=== PATIENT | female | born 1985 | race Caucasian/White ===

== ENCOUNTER 2021-06-30 08:00 | Outpatient (CLI) | payer OTHER ==
[2021-06-30 18:24] LABS: BASOPHILS % (AUTO) 0.5 %; EOSINOPHILS # (AUTO) 0.2 10^3/uL (0.0-0.7); EOSINOPHILS % (AUTO) 2.1 %; HCT - HEMATOCRIT 40.3 % (37.0-47.0); HGB - HEMOGLOBIN 13.2 g/dL (12.0-16.0); LYMPHOCYTES # (AUTO) 1.5 10^3/uL (1.5-3.5); MEAN CORPUSCULAR HEMOGLOBIN 30.3 pg (27.0-31.0); MEAN CORPUSCULAR HGB CONC 32.8 g/dL (32.0-36.0); MEAN CORPUSCULAR VOLUME 92.4 fL (81.0-99.0); MEAN PLATELET VOLUME 10.6 fL (7.9-10.8); MONOCYTES # (AUTO) 0.6 10^3/uL (0.0-1.0); MONOCYTES % (AUTO) 7.4 %; NEUTROPHILS # (AUTO) 5.7 10^3/uL (1.5-6.6); NEUTROPHILS % (AUTO) 70.9 %; PLT - PLATELET COUNT 397 10^3/uL (130-450); RED BLOOD COUNT 4.36 10^6/uL (4.20-5.40); RED CELL DISTRIBUTION WIDTH 11.9 % (12.0-15.0)
[2021-06-30 18:42] LABS: % IRON SATURATION 21 % (20-50); ALBUMIN 4.4 g/dL (3.2-5.5); ALBUMIN/GLOBULIN RATIO 1.4 (1.0-2.2); ALKALINE PHOSPHATASE 56 IU/L (42-121); ALT ALANINE AMINOTRANSFERASE 16 IU/L (10-60); AST ASPARTATE AMINOTRANSFERASE 26 IU/L (10-42); BILIRUBIN,TOTAL 0.4 mg/dL (0.2-1.0); BUN - BLOOD UREA NITROGEN 11 mg/dL (6-20); CALCIUM 9.1 mg/dL (8.5-10.3); CARBON DIOXIDE - CO2 26 mmol/L (21-32); CHLORIDE 101 mmol/L (101-111); CHOL/HDL RATIO 2.4 (<4.4); CHOLESTEROL 172 mg/dL; CREATININE 0.7 mg/dL (0.4-1.0); GFR - MDRD 96 (>89); GLUCOSE 86 mg/dL (70-100); HDL CHOLESTEROL 72 mg/dL; IRON 83 ug/dL (28-170); LDL CHOLESTEROL,CALCULATED 83 mg/dL; LDL/HDL RATIO 1.2 (<4.4); POTASSIUM 3.6 mmol/L (3.5-5.0); SODIUM 136 mmol/L (135-145); TOTAL IRON BINDING CAPACITY 403 ug/dL (250-450); TOTAL PROTEIN 7.5 g/dL (6.7-8.2); TRANSFERRIN 288 mg/dL (192-382); TRIGLYCERIDES 83 mg/dL; VLDL CHOLESTEROL 17 mg/dL
[2021-06-30 18:45] LABS: CRP - C-REACTIVE PROTEIN < 1.0 mg/dL (0-1.0); HCG,QUALITATIVE BLOOD NEGATIVE
[2021-06-30 18:54] LABS: THYROID STIMULATING HORMONE 1.17 uIU/mL (0.34-5.60)
[2021-06-30 19:22] LABS: FOLLICLE STIMULATING HORMONE 10.84 mIU/mL; LUTEINIZING HORMONE 4.71 mIU/mL
[2021-06-30 21:01] LABS: ESTIMATED AVERAGE GLUCOSE 105 mg/dL (70-100); HEMOGLOBIN A1c% 5.3 % (4.27-6.07)
[2021-07-03 12:36] LABS: ANA SCREEN NEGATIVE (NEGATIVE)
== END 2021-06-30 23:59 | disposition home or self-care (01) ==
LOC: LAB.S 08:00
PROVIDERS: ATTEND Registered Nurse
DX: F33.2 Major depressive disorder, recurrent severe without psychotic features (principal); R68.89 Other general symptoms and signs
CPT/HCPCS: 36415; 80053; 80061; 82306; 82607; 82670; 83001; 83002; 83036; 83540; 83721; 84403; 84443; 84466; 84703; 85025; 86038; 86140

== ENCOUNTER 2022-03-03 07:10 | Outpatient (CLI) | payer OTHER ==
--- NOTE | 2022-03-03 10:43 | Ultrasound Report ---
PROCEDURE: OB First Trimester INDICATIONS: POSITIVE TEST OUTSIDE/PRIOR DATING DATA: Last menstrual period (LMP): 12/25/2021. LMP-based estimated date of delivery (CHINO): 10/01/2022. First dating scan (date and location): 03/03/2022. Estimated date of delivery (CHINO) from first dating scan: 09/26/2022. TECHNIQUE: Real-time scanning was performed of the fetus and maternal pelvic organs, with image documentation. COMPARISON: None FINDINGS: Embryo: Living intrauterine gestation Heart rate: 1 58 bpm Cervical length is 4.6 cm. Caruthers-rump length is 3.6 cm (10 weeks and 3 days). Measurement variability in dating: +/- 4 weeks by LMP, +/- 7 days by mean sac diameter (use before 6 weeks gestation if crown-rump length not able to be measured), +/- 5 days by crown-rump length (6-12 weeks gestation). Maternal organs: Ovaries within normal limits, with corpus luteum in the left ovary. Small fundal fibroid measuring up to 1.4 cm. IMPRESSION: Intrauterine at 10 weeks and 3 days by crown-rump length. Reviewed by: Fili Velázquez MD on 03/03/2022 10:41 AM PDT Approved by: Fili Velázquez MD on 03/03/2022 10:41 AM PDT Station ID: [id number]
== END 2022-03-03 07:11 | disposition home or self-care (01) ==
LOC: DI 07:10
PROVIDERS: ATTEND Obstetrics & Gynecology
DX: Z32.01 Encounter for pregnancy test, result positive (principal)

== ENCOUNTER 2022-03-10 08:00 | Outpatient (CLI) | payer OTHER ==
[2022-03-10 15:35] LABS: BILIRUBIN,URINE NEGATIVE (NEGATIVE); GLUCOSE, URINE (UA) NEGATIVE (NEGATIVE); KETONES,URINE (UA) NEGATIVE (NEGATIVE); LEUKOCYTE ESTERASE, URINE NEGATIVE (NEGATIVE); NITRITE,URINE NEGATIVE (NEGATIVE); OCCULT BLOOD,URINE NEGATIVE (NEGATIVE); PH,URINE 6.5 PH (5.0-7.5); PROTEIN,URINE NEGATIVE (NEGATIVE); UROBILINOGEN,URINE 0.2 (NORMAL) E.U./dL (NORMAL)
[2022-03-10 15:55] LABS: CLARITY,URINE CLEAR (CLEAR)
[2022-03-10 15:56] LABS: BACTERIA,URINE Many /HPF (None Seen); RBC,URINE None Seen /HPF (0-5); SQUAMOUS EPITHELIAL CELL,UR FEW Squamous (<= Few); WBC,URINE 0-3 /HPF (0-5)
== END 2022-03-10 23:59 | disposition home or self-care (01) ==
LOC: LAB 08:00
PROVIDERS: ATTEND Obstetrics & Gynecology
DX: Z34.90 Encounter for supervision of normal pregnancy, unspecified, unspecified trimester (principal); Z36.89 Encounter for other specified antenatal screening
CPT/HCPCS: 81001; 87086

== ENCOUNTER 2022-03-13 16:06 | Outpatient (CLI) | payer OTHER ==
[2022-03-13 16:43] LABS: BASOPHILS % (AUTO) 0.4 %; EOSINOPHILS # (AUTO) 0.1 10^3/uL (0.0-0.7); EOSINOPHILS % (AUTO) 1.1 %; HCT - HEMATOCRIT 37.9 % (37.0-47.0); HGB - HEMOGLOBIN 12.6 g/dL (12.0-16.0); LYMPHOCYTES # (AUTO) 1.9 10^3/uL (1.5-3.5); LYMPHOCYTES % (AUTO) 26.3 %; MEAN CORPUSCULAR HEMOGLOBIN 29.9 pg (27.0-31.0); MEAN CORPUSCULAR HGB CONC 33.2 g/dL (32.0-36.0); MEAN CORPUSCULAR VOLUME 89.8 fL (81.0-99.0); MEAN PLATELET VOLUME 9.6 fL (7.9-10.8); MONOCYTES # (AUTO) 0.7 10^3/uL (0.0-1.0); MONOCYTES % (AUTO) 9.3 %; NEUTROPHILS # (AUTO) 4.5 10^3/uL (1.5-6.6); NEUTROPHILS % (AUTO) 62.6 %; PLT - PLATELET COUNT 347 10^3/uL (130-450); RED BLOOD COUNT 4.22 10^6/uL (4.20-5.40); RED CELL DISTRIBUTION WIDTH 11.8 % (12.0-15.0); WHITE BLOOD COUNT 7.2 x10^3/uL (4.8-10.8)
[2022-03-13 16:44] LABS: BILIRUBIN,URINE NEGATIVE (NEGATIVE); GLUCOSE, URINE (UA) NEGATIVE (NEGATIVE); KETONES,URINE (UA) NEGATIVE (NEGATIVE); LEUKOCYTE ESTERASE, URINE NEGATIVE (NEGATIVE); NITRITE,URINE NEGATIVE (NEGATIVE); OCCULT BLOOD,URINE NEGATIVE (NEGATIVE); PH,URINE 6.5 PH (5.0-7.5); PROTEIN,URINE NEGATIVE (NEGATIVE); UROBILINOGEN,URINE 0.2 (NORMAL) E.U./dL (NORMAL)
[2022-03-13 16:46] LABS: CLARITY,URINE CLEAR (CLEAR)
[2022-03-13 17:06] LABS: BACTERIA,URINE Few /HPF (None Seen); RBC,URINE None Seen /HPF (0-5); SQUAMOUS EPITHELIAL CELL,UR RARE Squamous (<= Few); WBC,URINE 0-3 /HPF (0-5)
[2022-03-14 08:10] LABS: HBsAG SCREEN Negative (Negative); RPR Non Reactive (Non Reactive)
[2022-03-15 00:10] LABS: HIV SCREEN 4TH GENERATION Non Reactive (Non Reactive)
[2022-03-15 10:09] LABS: VARICELLA-ZOSTER AB IGG 1660 index (Immune >165)
[2022-03-15 18:07] LABS: HCV RNA QUANTITATION HCV Not Detected IU/mL (.)
== END 2022-03-13 16:07 | disposition home or self-care (01) ==
LOC: LAB 16:06
PROVIDERS: ATTEND Obstetrics & Gynecology
DX: O09.511 Supervision of elderly primigravida, first trimester (principal); Z36.89 Encounter for other specified antenatal screening
CPT/HCPCS: 36415; 81001; 81599; 85025; 86592; 86762; 86777; 86778; 86787; 86850; 86900; 86901; 87086; 87340; 87389; 87522

== ENCOUNTER 2022-05-05 11:43 | Outpatient (CLI) | payer OTHER | END 2022-05-05 11:44 | disposition home or self-care (01) | LOC: LAB 11:43 | PROVIDERS: ATTEND Obstetrics & Gynecology | DX: O09.511 Supervision of elderly primigravida, first trimester (principal) | CPT/HCPCS: 36415; 81511 ==

== ENCOUNTER 2022-05-20 15:45 | Outpatient (CLI) | payer OTHER ==
--- NOTE | 2022-05-21 12:07 | Ultrasound Report ---
PROCEDURE: OB Detailed Eval INDICATIONS: SUPERVISION OF OUTSIDE/PRIOR DATING DATA: Last menstrual period (LMP): 12/25/2021. LMP-based estimated date of delivery (CHINO): 10/01/2022. First dating scan (date and location): 03/03/2022. Estimated date of delivery (CHINO) from first dating scan: 09/26/2022. The below data below was generated using the working CHINO of 09/26/2022 TECHNIQUE: Real-time scanning was performed of the fetus, with image documentation and biometric measurements. Endovaginal scanning: Not indicated COMPARISON: 03/03/2022. FINDINGS: General: A single living intrauterine gestation is present. Presentation: Breech Placenta: Placental position is posterior, without previa. Amniotic fluid index: 15.8 cm, normal for gestational age. heart rate: 152 beats per minute. Maternal cervical canal: 3.8 cm long; normal length is 2.5 cm or more. biometrics: Biparietal diameter: 4.76 cm, 20 weeks, 3 days. Head circumference: 18.45 cm, 20 weeks, 6 days. Abdominal circumference: 16.72 cm, 21 weeks, 5 days. Femur length: 3.7 cm, 21 weeks, 6 days. Estimated gestational age from initial scan: 21 weeks, 4 days. Composite gestational age from present scan: 21 weeks, 1 day. Estimated weight and percentile: 438.9 g, 47.4% Measurement variability in biometric dating: +/- 10 days from 12-20 weeks gestation, +/- 2 weeks from 20-30 weeks gestation, +/- 3 weeks at 30 weeks gestation or later. Anatomic survey: Neuro: Ventricles are normal at less than 10 mm. Cisterna magna is normal at 3-11 mm. Cerebellum i s normal in size and morphology. Nuchal skin fold: Normal at less than 6 mm between 14 and 20 weeks gestational age. Face: Nose and lips, facial profile are normal. Spine: No evidence for spina bifida. Heart: 4-chambered heart is present, with normal ventricular outflow tracts. Diaphragm: Diaphragm is intact. Stomach: Left-sided stomach is present. Kidneys: No hydronephrosis. Normal is less than 5 mm in 2nd trimester, less than 7 mm in 3rd trimester. Cord: 3 vessel cord has orthotopic insertion. Bladder: Normal in size. Extremities: All 4 extremities are visualized. IMPRESSION: 1. Single live intrauterine gestation with fetus in breech presentation. heart rate is 152 bpm. Normal amount of amniotic fluid. Normal growth. Estimated weight is at 47.4%. 2. Normal anatomic survey. Reviewed by: Clint Dasilva MD on 05/21/2022 12:05 PM PST Approved by: Clint Dasilva MD on 05/21/2022 12:05 PM PST Station ID: [id number]
== END 2022-05-20 15:46 | disposition home or self-care (01) ==
LOC: DI 15:45
PROVIDERS: ATTEND Nurse Practitioner
DX: O09.522 Supervision of elderly multigravida, second trimester (principal); Z36.89 Encounter for other specified antenatal screening; Z3A.21 21 weeks gestation of pregnancy

== ENCOUNTER 2022-06-30 07:55 | Outpatient (CLI) | payer OTHER ==
[2022-06-30 09:09] LABS: HCT - HEMATOCRIT 35.3 % (37.0-47.0); HGB - HEMOGLOBIN 11.4 g/dL (12.0-16.0); MEAN CORPUSCULAR HEMOGLOBIN 30.3 pg (27.0-31.0); MEAN CORPUSCULAR HGB CONC 32.3 g/dL (32.0-36.0); MEAN CORPUSCULAR VOLUME 93.9 fL (81.0-99.0); MEAN PLATELET VOLUME 9.7 fL (7.9-10.8); RED BLOOD COUNT 3.76 10^6/uL (4.20-5.40); RED CELL DISTRIBUTION WIDTH 12.9 % (12.0-15.0); WHITE BLOOD COUNT 10.6 x10^3/uL (4.8-10.8)
== END 2022-06-30 07:56 | disposition home or self-care (01) ==
LOC: LAB 07:55
PROVIDERS: ATTEND Obstetrics & Gynecology
DX: O09.511 Supervision of elderly primigravida, first trimester (principal)
CPT/HCPCS: 36415; 82950; 85027; 86850

== ENCOUNTER 2022-08-11 14:09 | Outpatient (CLI) | payer OTHER ==
[2022-08-11 15:46] LABS: BASOPHILS % (AUTO) 0.4 %; EOSINOPHILS # (AUTO) 0.1 10^3/uL (0.0-0.7); HCT - HEMATOCRIT 37.2 % (37.0-47.0); LYMPHOCYTES # (AUTO) 1.6 10^3/uL (1.5-3.5); LYMPHOCYTES % (AUTO) 15.3 %; MEAN CORPUSCULAR HEMOGLOBIN 30.1 pg (27.0-31.0); MEAN CORPUSCULAR HGB CONC 32.3 g/dL (32.0-36.0); MEAN CORPUSCULAR VOLUME 93.2 fL (81.0-99.0); MEAN PLATELET VOLUME 10.1 fL (7.9-10.8); MONOCYTES # (AUTO) 1.1 10^3/uL (0.0-1.0); MONOCYTES % (AUTO) 10.8 %; NEUTROPHILS # (AUTO) 7.3 10^3/uL (1.5-6.6); NEUTROPHILS % (AUTO) 70.6 %; PLT - PLATELET COUNT 257 10^3/uL (130-450); RED BLOOD COUNT 3.99 10^6/uL (4.20-5.40); RED CELL DISTRIBUTION WIDTH 12.7 % (12.0-15.0); WHITE BLOOD COUNT 10.3 x10^3/uL (4.8-10.8)
[2022-08-11 15:54] LABS: CREATININE,URINE 22.8 mg/dL; TOTAL PROTEIN,URINE TIMED < 6 mg/dL
[2022-08-11 16:04] LABS: RUPTURE OF MEMBRANES PLUS NEGATIVE (NEGATIVE)
[2022-08-11 16:14] LABS: ALBUMIN 2.9 g/dL (3.2-5.5); ALBUMIN/GLOBULIN RATIO 0.8 (1.0-2.2); ALKALINE PHOSPHATASE 73 IU/L (42-121); ALT ALANINE AMINOTRANSFERASE 50 IU/L (10-60); AST ASPARTATE AMINOTRANSFERASE 36 IU/L (10-42); BILIRUBIN,TOTAL < 0.2 mg/dL (0.2-1.0); BUN - BLOOD UREA NITROGEN 8 mg/dL (6-20); CALCIUM 9.1 mg/dL (8.5-10.3); CARBON DIOXIDE - CO2 25 mmol/L (21-32); CHLORIDE 107 mmol/L (101-111); CREATININE 0.5 mg/dL (0.4-1.0); GFR - MDRD 140 (>89); GLUCOSE 80 mg/dL (70-100); SODIUM 138 mmol/L (135-145); TOTAL PROTEIN 6.7 g/dL (6.7-8.2)
--- NOTE | 2022-08-11 17:02 | PROVIDER PROGRESS NOTE ---
- HPI Chief Complaint: Hypertension/PIH Current : Vital Signs Temperature 98.6 F 08/11/22 14:29 Heart Rate 95 08/11/22 14:29 Respiratory Rate 18 08/11/22 14:29 Blood Pressure 141/90 H 08/11/22 14:29 Temperature 98.1 F 08/11/22 16:17 Heart Rate 79 08/11/22 15:00 Respiratory Rate 18 08/11/22 14:29 Blood Pressure 132/81 H 08/11/22 15:01 O2 Saturation If not protocol: Oxygen Flow, liters/minute - Procedures OB Procedure Performed: NST Diagnosis/Indication for NST: Gestational Hypertension NST Procedure: EFM: 150s, moderate variability, positive 15x15 accelerations, no decelerations [place]: no contractions NST reactive/Cat 1 tracing Performed and read 08/11/22 Service Date of procedure: 08/11/22 - Plan Plan: 36yo at 32.5w sent from office visit after BP elevated 142/94. Also complaining of fatigue, previously seeing spots and itchy feet last night. She has been taking aspirin 81mg. Labs obtained. BP 141/90, then decreased to 120/80s. GEN: NAD CV: Regular rate Resp: Breathing unlabored Abd: soft, nt Ext: +1 edema NST reactive Labs reviewed and benign 36yo at 32.5w with gestational hypertension - Preeclampsia labs reviewed and benign. Follow up bile acids - Discharge to home with labor and preeclampsia precautions - Follow up 1w - Growth US ordered, to be scheduled by radiology
[2022-08-11 17:05] VITALS: BP 122/75
== END 2022-08-11 16:40 | disposition home or self-care (01) ==
LOC: WFO 14:09 → FBP 15:45 → WFO 16:40
PROVIDERS: ATTEND Obstetrics & Gynecology
DX: O13.3 Gestational [pregnancy-induced] hypertension without significant proteinuria, third trimester (principal); Z3A.32 32 weeks gestation of pregnancy
CPT/HCPCS: 36415; 59025; 80053; 82239; 82570; 84112; 84156; 84550; 85025; 99215

== ENCOUNTER 2022-09-03 21:21 | Outpatient (CLI) | payer OTHER ==
--- NOTE | 2022-09-05 07:07 | Ultrasound Report ---
PROCEDURE: OB F/U or Repeat INDICATIONS: GESTATIONAL HYPERTENSION OUTSIDE/PRIOR DATING DATA: Last menstrual period (LMP): 12/25/2021. LMP-based estimated date of delivery (CHINO): 10/01/2022. First dating scan (date and location): 03/03/2022. Estimated date of delivery (CHINO) from first dating scan: 09/26/2022. The below data below was generated using the ultrasound CHINO of 09/26/2022 TECHNIQUE: Real-time scanning was performed of the fetus, with image documentation and biometric measurements. COMPARISON: OB ultrasound 05/21/2022 FINDINGS: General: A single living intrauterine gestation is present. Presentation: Vertex Placenta: Placental position is posterior, without previa. Amniotic fluid index: 11.7 cm, within normal limits for gestational age. Largest pocket 2.9 cm heart rate: 138 beats per minute. Maternal cervical canal: 4.0 cm long; normal length is 2.5 cm or more. biometrics: Biparietal diameter: 8.8 cm 35 weeks 5 days Head circumference: 32.2 cm 36 weeks 3 days Abdominal circumference: 31.7 cm 35 weeks 5 days Femur length: 7.0 cm 35 weeks 5 days Estimated gestational age from initial scan: 36 weeks 5 days Composite gestational age from present scan: 35 weeks 6 days Estimated weight and percentile: 27 61 g, 29th percentile. This is compared to 47th percentile on prior exam Measurement variability in biometric dating: +/- 10 days from 12-20 weeks gestation, +/- 2 weeks from 20-30 weeks gestation, +/- 3 weeks at 30 weeks gestation or more. Other: There is a increased prominence of the left renal collecting system ranging from 7.0 to 8.9 mm . IMPRESSION: Single live intrauterine with ultrasound gestational age today of 35 weeks 6 days. weight is noted at the 29th percentile compared to 47th percentile on prior exam. Recommend con tinued interval imaging follow-up to document appropriate interval growth. Prominence of the left renal collecting system is obtained. Short interval imaging follow-up is also recommended. Reviewed by: Archana Chavez MD on 09/04/2022 12:55 PM PDT Approved by: Archana Chavez MD on 09/04/2022 12:55 PM PDT Station ID: [id number]
== END 2022-09-03 21:22 | disposition home or self-care (01) ==
LOC: DI 21:21
PROVIDERS: ATTEND Obstetrics & Gynecology
DX: O13.3 Gestational [pregnancy-induced] hypertension without significant proteinuria, third trimester (principal); Z3A.35 35 weeks gestation of pregnancy

== ENCOUNTER 2022-09-08 08:00 | Outpatient (CLI) | payer OTHER | END 2022-09-08 23:59 | disposition home or self-care (01) | LOC: LAB 08:00 | PROVIDERS: ATTEND Obstetrics & Gynecology | DX: Z36.85 Encounter for antenatal screening for Streptococcus B (principal) | CPT/HCPCS: 87797 ==

== ENCOUNTER 2022-09-19 09:08 | Outpatient (CLI) | payer OTHER ==
[2022-09-19 09:35] VITALS: BP 123/82
--- NOTE | 2022-09-19 10:27 | PROVIDER PROGRESS NOTE ---
- HPI Chief Complaint: Decreased movement Current : Vital Signs Temperature 98.2 F 09/19/22 09:32 Heart Rate 92 09/19/22 09:32 Respiratory Rate 18 09/19/22 09:32 Blood Pressure 123/82 H 09/19/22 09:32 Temperature 98.2 F 09/19/22 09:32 Heart Rate 92 09/19/22 09:32 Respiratory Rate 18 09/19/22 09:32 Blood Pressure 123/82 H 09/19/22 09:32 O2 Saturation If not protocol: Oxygen Flow, liters/minute - Procedures OB Procedure Performed: NST Diagnosis/Indication for NST: Decreased movement NST Procedure: NST Procedure Start Date 09/19/22 Start Time 09:16 Stop Time 10:11 Vibroacoustic Stimulation Used No Patient States Movement Yes Service Date of procedure: 09/19/21 (Read 09/19/21) - Plan Plan: Patient is a 36-year-old G1, P0 at 38 weeks gestation presenting to triage for decreased movement. She says baby has been moving less overall, but tends to have hiccups daily which reassures her. She denies leaking and bleeding. No contractions. She denies headache, right upper quadrant pain, changes in vision. Physical Exam Constitutional: alert, no acute distress, well hydrated, well developed, well nourished, appropriate dress. Cardiovascular: Regular rate and rhythm. Respiratory: no respiratory distress. Abdomen: nondistended, nontender, no guarding. Psych: affect and mood appropriate, normal interaction, good eye contact. NST: FHT: 135 bpm baseline, moderate variability, accelerations present, no decelerations. Reactive NST [place]: Quiescent Bedside ultrasound: PIETER 8.4 cm Assessment and plan 36-year-old G1, P0 at 38 weeks gestation with decreased movements 1. Decreased movement: -Patient has felt baby move since being here. Reactive NST. Modified BPP is good. -Patient does have some anxiety about the decreased movement. We discussed induction being an option if this became taxing on her, but if she does well with good movement, we can continue expectantly. -Discussed kick counts and movement expectations with patient. 2. 38 weeks gestation: -Has a follow-up appointment on Thursday. Will discuss possible induction at that time.
== END 2022-09-19 10:33 | disposition home or self-care (01) ==
LOC: WFO 09:08 → FBP 09:11 → WFO 10:33
PROVIDERS: ATTEND Obstetrics & Gynecology
DX: O36.8130 Decreased fetal movements, third trimester, not applicable or unspecified (principal); Z3A.38 38 weeks gestation of pregnancy
CPT/HCPCS: 59025; 99213; 99215

== ENCOUNTER 2022-09-26 12:17 | Inpatient (IN) | payer OTHER ==
[2022-09-26 13:02] LABS: RUPTURE OF MEMBRANES PLUS POSITIVE (NEGATIVE)
--- NOTE | 2022-09-26 13:40 | HISTORY & PHYSICAL EXAMINATION ---
Admit History - Visit Reason Visit Reason: Membranes rupture (leaking fluid since 09/25 at 5:30 pm) - : 1 Parity: 0 Care: positive: [facility] Complications This : positive: None - Mother's Labs Mother's Blood Type: positive: O Mother's RH: positive: Positive GBS: positive: Group B Step Negative Rubella Status: positive: Immune Review of Systems - Cardiovascular Cariovascular: denies: Chest pain - Respiratory Respiratory: denies: Cough - Gastrointestinal Gastrointestinal: denies: Abdominal pain - All Other Systems All Other Systems: reports: Reviewed and negative Physical - Abdominal Exam Vital Signs: Temp Pulse Resp BP Pulse Ox O2 Flow Rate 97.9 F 09/26/22 12:35 Contraction Intensity: positive: Mild Uterine Resting Tone: positive: Soft - Monitoring Strip Review: positive: Category I - Presentation Presentation: positive: Vertex - Vaginal Exam Membranes: positive: Membranes ruptured (ROM+ positive) Plan for Labor - Plan For Labor Plan for Labor: 1. admit to labor and delivery 2. ROM -discussed augmentation with pitocin 3. patient had one elevated BP on prenatals, rest have been normal 3. discussed labor management options and pain management options, all questions answered 4. GBS negative 5. wellbeing: reassuring
[2022-09-26] MEDS ORDERED: miSOPROStoL 200 MCG TABLET PR PRN (13:48)
[2022-09-26] MEDS ORDERED: OXYTOCIN/SODIUM CHLORIDE 500 ML IV PRN (13:48)
[2022-09-26] MEDS ORDERED: SODIUM CHLORIDE FLUSH 0.9% 10 ML SYRINGE IVP PRN (13:48)
[2022-09-26] MEDS ORDERED: NIFEdipine 10 MG CAPSULE PO PRN (13:48)
[2022-09-26] MEDS ORDERED: lidocaine 1% 20 ML MDV ID PRN (13:48)
[2022-09-26] MEDS ORDERED: TERBUTALINE 1 MG/ML VIAL SUBQ PRN (13:48)
[2022-09-26] MEDS ORDERED: miSOPROStoL 200 MCG TABLET BC PRN (13:48)
[2022-09-26] MEDS ORDERED: METHYLERGONOVINE 0.2 MG/ML VIAL IM PRN (13:48)
[2022-09-26] MEDS ORDERED: fentaNYL 100 MCG/2 ML VIAL IVP PRN (13:48)
[2022-09-26] MEDS ORDERED: LACTATED RINGERS 500 ML IV ONE (13:48)
[2022-09-26] MEDS ORDERED: OXYTOCIN 10 UNIT/ML VIAL IM PRN (13:48)
[2022-09-26] MEDS ORDERED: LABETALOL 20 MG/4 ML SYRINGE IVP PRN ×3 (13:48)
[2022-09-26] MEDS ORDERED: CARBOPROST TROMETHAMINE 250 MCG/ML AMP IM PRN (13:48)
[2022-09-26] MEDS ORDERED: hydrALAZINE INJ 20 MG/ML VIAL IVP PRN ×2 (13:48)
[2022-09-26] MEDS ORDERED: TRANEXAMIC ACID IN NACL 1,000 MG/100 ML BAG IV PRN (13:48)
[2022-09-26 15:37] LABS: BASOPHILS % (AUTO) 0.2 %; EOSINOPHILS # (AUTO) 0.1 10^3/uL (0.0-0.7); EOSINOPHILS % (AUTO) 0.5 %; HCT - HEMATOCRIT 37.1 % (37.0-47.0); HGB - HEMOGLOBIN 12.4 g/dL (12.0-16.0); LYMPHOCYTES # (AUTO) 1.4 10^3/uL (1.5-3.5); LYMPHOCYTES % (AUTO) 13.1 %; MEAN CORPUSCULAR HEMOGLOBIN 30.5 pg (27.0-31.0); MEAN CORPUSCULAR HGB CONC 33.4 g/dL (32.0-36.0); MEAN CORPUSCULAR VOLUME 91.4 fL (81.0-99.0); MONOCYTES # (AUTO) 0.9 10^3/uL (0.0-1.0); MONOCYTES % (AUTO) 8.7 %; NEUTROPHILS % (AUTO) 76.4 %; PLT - PLATELET COUNT 270 10^3/uL (130-450); RED BLOOD COUNT 4.06 10^6/uL (4.20-5.40); WHITE BLOOD COUNT 10.5 x10^3/uL (4.8-10.8)
[2022-09-26] MEDS: LACTATED RINGERS 1,000 ML IV SCH (15:58)
[2022-09-26] MEDS: OXYTOCIN/SODIUM CHLORIDE 500 ML IV SCH (16:02)
--- NOTE | 2022-09-26 17:31 | PROVIDER PROGRESS NOTE ---
Labor Progress Note - Uterine Monitoring Uterine Monitoring Mode: positive: External toco Contraction Intensity: positive: Mild to moderate Uterine Resting Tone: positive: Soft - Monitoring Monitor Mode: positive: External ultrasound Heart Rate Variability: positive: Moderate (6-25 bmp) Accelerations: positive: Present, 15x15 Decelerations: positive: None Strip Review: positive: Category I - Vaginal Exam Dilation (in cm): 1 Effacement (%): 20 Station: -2 - Labor Progress Note Labor Progress Note/Additional Text: Pitocin at 6 wellbeing is reassuring
[2022-09-26] MEDS ORDERED: ROPIVACAINE 0.2% 200 MG/100 ML BAG EP ONE (22:10)
[2022-09-26] MEDS ORDERED: LIDOCAINE MPF 2%-EPI 1:200000 20 ML VIAL ONE (22:10)
--- NOTE | 2022-09-26 22:53 | ANESTHESIA ---
Pre-Anesthesia VS, & Labs - Diagnosis active labor - Procedure labor epidural Vital Signs: Temp Pulse Resp BP Pulse Ox O2 Flow Rate 36.8 C 86 18 138/82 H 99 09/26/22 19:57 09/26/22 19:57 09/26/22 19:57 09/26/22 19:57 09/26/22 19:57 Height: 5 ft 3 in Weight (kg): 81.647 kg Body Mass Index: 31.8 BMI Classification: Obese - NPO Other (not NPO) - Is Patient ?: Yes - Lab Results Current Lab Results: Laboratory Tests 09/26/22 15:20: WBC 10.5, RBC 4.06 L, Hgb 12.4, Hct 37.1, MCV 91.4, MCH 30.5, MCHC 33.4, RDW 13.0, Plt Count 270, MPV 11.0 H, Neut # (Auto) 8.0 H, Lymph # (Auto) 1.4 L, [place] # (Auto) 0.9, Eos # (Auto) 0.1, Baso # (Auto) 0.0, Absolute Nucleated RBC 0.00, Nucleated RBC % 0.0 09/26/22 15:20: Blood Type O POSITIVE, Antibody Screen NEGATIVE Fish Bones: 09/26/22 15:20 Home Medications and Allergies Active Medications Carboprost Tromethamine (Carboprost Tromethamine 250 Mcg/Ml Amp) 250 mcg IM .ONCE PRN PRN Reason: Hemorrhage Fentanyl (Fentanyl 100 Mcg/2 Ml Vial) 50 mcg IVP Q1H PRN PRN Reason: Severe Pain (score 7-10) Hydralazine HCl (Hydralazine Inj 20 Mg/Ml Vial) 5 - 10 mg IVP Q20M PRN; Protocol PRN Reason: SBP> or= 160 OR DBP> or= 110 Hydralazine HCl (Hydralazine Inj 20 Mg/Ml Vial) 10 mg IVP .ONCE PRN; Protocol PRN Reason: SBP> or= 160 OR DBP> or= 110 Oxytocin/Sodium Chloride (Pitocin/Sodium Chloride) 500 mls @ 999 mls/hr IV PRN PRN; Protocol PRN Reason: POST- HEMORR PREVENTION Tranexamic Acid (Tranexamic 1,000 Mg/100ml-Nacl) 1,000 mg in 100 mls @ 600 mls/hr IV Q30M PRN PRN Reason: EBL >1200mL and within 3hr Lactated Ringer's (Lr) 1,000 mls @ 125 mls/hr IV .Q8H TOSIN Last Admin: 09/26/22 15:58 Dose: 125 mls/hr Oxytocin/Sodium Chloride (Pitocin/Sodium Chloride) 500 mls @ 2 mls/hr IV TITR TOSIN; Protocol Last Titration: 09/26/22 21:10 Dose: 16 milliunit/min, 16 mls/hr Labetalol HCl (Labetalol 20 Mg/4 Ml Syringe) 20 - 80 mg IVP Q10M PRN; Protocol PRN Reason: SBP> or= 160 OR DBP> or= 110 Labetalol HCl (Labetalol 20 Mg/4 Ml Syringe) 20 mg IVP .ONCE PRN; Protocol PRN Reason: SBP> or= 160 OR DBP> or= 110 Labetalol HCl (Labetalol 20 Mg/4 Ml Syringe) 20 - 40 mg IVP Q10M PRN; Protocol PRN Reason: SBP> or= 160 OR DBP> or= 110 Lidocaine HCl (Lidocaine 1% 20 Ml Mdv) 20 ml ID .ONCE PRN PRN Reason: PERINEAL REPAIR Stop: 09/29/22 13:48 Methylergonovine Maleate (Methylergonovine 0.2 Mg/Ml Vial) 0.2 mg IM .ONCE PRN PRN Reason: Hemorrhage Misoprostol (Misoprostol 200 Mcg Tablet) 600 mcg BC .ONCE PRN PRN Reason: Hemorrhage Misoprostol (Misoprostol 200 Mcg Tablet) 800 mcg CO .ONCE PRN PRN Reason: Hemorrhage Nifedipine (Nifedipine 10 Mg Capsule) 10 - 20 mg PO Q20M PRN; Protocol PRN Reason: SBP> or= 160 OR DBP> or= 110 Oxytocin (Oxytocin 10 Unit/Ml Vial) 10 unit IM .ONCE PRN PRN Reason: Step One if no IV access. Sodium Chloride (Sodium Chloride Flush 0.9% 10 Ml Syringe) 10 ml IVP PRN PRN PRN Reason: NEEDED PER PROVIDER ORDERS Sodium Chloride (Sodium Chloride Flush 0.9% 10 Ml Syringe) 10 ml IVP Q8H TOSIN Terbutaline Sulfate (Terbutaline 1 Mg/Ml Vial) 0.25 mg SUBQ .ONCE PRN PRN Reason: Tachystole Allergies/Adverse Reactions: Allergies Allergy/AdvReac Type Severity Reaction Status Date / Time grass pollen Allergy Mild Rash Verified 09/26/22 15:57 Anes History & Medical History - Anesthetic History Anesthesia Complications: reports: No previous complications Family history of Anesthesia Complications: Denies Family history of Malignant Hyperthermia: Denies - Medical History Cardiovascular: reports: None Pulmonary: reports: None Gastrointestinal: reports: None Urinary: reports: None Neuro: reports: None Musculoskeletal: reports: None Endocrine/Autoimmune: reports: None Blood Disorders: reports: None Skin: reports: None Smoking Status: Never smoker Psychosocial: reports: No issues indicated History of Cancer?: No - Obstetrical History : 1 Parity: 0 Complications: reports: None Exam General: Alert, Oriented x3, Cooperative Dental: WNL Mouth Openin Fingerbreadth Neck Mobility: Normal Mallampati classification: II Thyromental Distance: 4-6 cm Respiratory: Lungs clear Cardiovascular: Regular rate Plan Anesthesia Type: Epidural Consent for Procedure(s) Verified and Reviewed: Yes Code Status: Attempt Resuscitation ASA classification: 2-Mild systemic disease Is this case an emergency?: No
[2022-09-26] MEDS ORDERED: ONDANSETRON 4 MG/2 ML VIAL IVP PRN (22:54)
[2022-09-26] MEDS ORDERED: NALBUPHINE 10 MG/ML AMP IVP PRN (22:54)
[2022-09-26] MEDS ORDERED: METOCLOPRAMIDE 10 MG/2 ML VIAL IVP PRN (22:54)
[2022-09-26] MEDS ORDERED: NALOXONE 0.4 MG/ML VIAL IVP PRN (22:54)
[2022-09-26] MEDS ORDERED: ROPIVACAINE 0.2% 200 MG/100 ML BAG EP PRN (22:54)
[2022-09-26] MEDS ORDERED: diphenhydrAMINE INJ 50 MG/ML VIAL IVP PRN (22:54)
[2022-09-26] MEDS ORDERED: ePHEDrine 50 MG/ML VIAL IVP PRN (22:54)
--- NOTE | 2022-09-26 23:23 | PROVIDER PROGRESS NOTE ---
Labor Progress Note - Uterine Monitoring Uterine Monitoring Mode: positive: External toco Contraction Intensity: positive: Strong Uterine Resting Tone: positive: Soft - Monitoring Monitor Mode: positive: External ultrasound Heart Rate Variability: positive: Moderate (6-25 bmp) Accelerations: positive: Present, 15x15 Decelerations: positive: None Strip Review: positive: Category I - Labor Progress Note Labor Progress Note/Additional Text: Patient comfortable with epidural. had drop in blood pressure and received 1 dose of ephedrine.
[2022-09-27] MEDS: LACTATED RINGERS 1,000 ML IV SCH ×6 (02:50→15:25)
--- NOTE | 2022-09-27 03:10 | DELIVERY NOTE ---
Delivery Note - Labor Labor: positive: Induced by oxytocin - Infant Delivery Method Delivery Method: positive: Spontaneous vaginal delivery - Presentation Presentation: positive: Vertex - Nuchal Cord Nuchal Cord: positive: None - Anesthetic Anesthetic Type: - Amniotic Fluid Description Amniotic Fluid Description: positive: Clear - Episiotomy Type Episiotomy Type: positive: None - Laceration Laceration: positive: 2nd degree, Perineal - Suture Suture Type: positive: Vicryl Suture Size: positive: 2-0, 4-0 - Delivery Outcome Delivery Outcome: positive: Livebirth - [place]: positive: Placed in direct skin contact with mother, Bulb syringe, Warmed, [place] used sex: positive: Female - Cord Cord: positive: 3 vessels - Placenta Placenta: positive: Intact - Estimated Blood Loss Estimated Blood Loss (in cc): 300 - Post Delivery Events Post Delivery Events: positive: No post delivery events
[2022-09-27] MEDS: IBUPROFEN 600 MG TABLET PO PRN ×3 (05:16→18:12)
[2022-09-27] MEDS: SODIUM CHLORIDE FLUSH 0.9% 10 ML SYRINGE IVP SCH ×4 (10:35→15:26)
--- NOTE | 2022-09-27 11:11 | PROVIDER PROGRESS NOTE ---
Subjective - Prog Note Date Prog Note Date: 09/27/22 Prog Note Time: 11:09 - Subjective Subjective: PPD#0 s/p lochia = period, complaining of perineal pain, otherwise doing well Objective - Vital Signs/Intake & Output Reviewed Vital Signs: Yes Vital Signs: Vital Signs x48h Temp Pulse Resp BP BP Pulse Ox 09/27/22 08:15 97.9 F 96 16 133/82 H 99 09/27/22 06:30 97.9 F 72 16 131/77 H 95 09/27/22 05:45 97.9 F 87 16 133/88 H 96 09/27/22 04:45 92 16 130/87 H 96 09/27/22 04:30 95 16 128/80 97 09/27/22 04:15 91 16 139/89 H 97 09/27/22 04:00 90 16 127/79 96 09/27/22 03:45 97.9 F 91 16 130/85 H 96 09/27/22 03:30 92 115/83 H 97 09/27/22 03:15 94 16 155/83 H Intake & Output: Intake & Output 09/24/22 09/25/22 09/26/22 09/27/22 23:59 23:59 23:59 23:59 Intake Total 5281.469 6441.633 Output Total 600 Balance 1515.513 0556.633 - Objective General Appearance: positive: No acute distress Respiratory: positive: No respiratory distress Cardiovascular: positive: Regular rate & rhythm Abdomen: positive: Non-tender (firm fundus below umbilicus) Extremities: positive: Pedal edema (1+) - Lab Results Fish Bones: 09/26/22 15:20 Other Labs: Lab Results x24hrs 09/26/22 09/26/22 09/26/22 Range/Units 15:20 15:20 12:35 WBC 10.5 (4.8-10.8) x10^3/uL RBC 4.06 L (4.20-5.40) 10^6/uL Hgb 12.4 (12.0-16.0) g/dL Hct 37.1 (37.0-47.0) % MCV 91.4 (81.0-99.0) fL MCH 30.5 (27.0-31.0) pg MCHC 33.4 (32.0-36.0) g/dL RDW 13.0 (12.0-15.0) % Plt Count 270 (130-450) 10^3/uL MPV 11.0 H (7.9-10.8) fL Neut # (Auto) 8.0 H (1.5-6.6) 10^3/uL Lymph # (Auto) 1.4 L (1.5-3.5) 10^3/uL [place] # (Auto) 0.9 (0.0-1.0) 10^3/uL Eos # (Auto) 0.1 (0.0-0.7) 10^3/uL Baso # (Auto) 0.0 (0.0-0.1) 10^3/uL Absolute Nucleated RBC 0.00 x10^3/uL Nucleated RBC % 0.0 /100WBC Membranes Rupture POSITIVE A (NEGATIVE) Blood Type O POSITIVE Antibody Screen NEGATIVE Assessment/Plan - Problem List (1) Vaginal delivery Impression: PPD#0 uncomplicated course Anticipate home tomorrow
[2022-09-27] MEDS: ACETAMINOPHEN 325 MG TABLET PO PRN ×3 (12:22→22:18)
[2022-09-27] MEDS: DOCUSATE SODIUM 100 MG CAPSULE PO SCH ×3 (12:22→22:18)
[2022-09-27] MEDS: OXYTOCIN/SODIUM CHLORIDE 500 ML IV SCH (15:26)
[2022-09-28] MEDS: IBUPROFEN 600 MG TABLET PO PRN ×4 (00:30→20:03)
[2022-09-28] MEDS: ACETAMINOPHEN 325 MG TABLET PO PRN ×3 (06:16→20:03)
--- NOTE | 2022-09-28 09:39 | PROVIDER PROGRESS NOTE ---
Subjective - Prog Note Date Prog Note Date: 09/28/22 - Subjective Subjective: Patient is PPD#1 s/p Patient is doing better this morning. Ambulating, tolerating regular diet lochia is appropriate Objective - Vital Signs/Intake & Output Reviewed Vital Signs: Yes Vital Signs: Vital Signs x48h Temp Pulse Resp BP BP Pulse Ox 09/28/22 08:21 97.3 F L 79 18 129/86 H 99 09/28/22 04:10 98.6 F 79 16 116/81 H 97 Intake & Output: Intake & Output 09/25/22 09/26/22 09/27/22 09/28/22 23:59 23:59 23:59 23:59 Intake Total 3969.372 2010.633 Output Total 600 Balance 3438.587 7519.633 - Objective General Appearance: positive: No acute distress Respiratory: positive: Breath sounds nml Cardiovascular: positive: Regular rate & rhythm Abdomen: positive: Non-tender (firm fundus below the umbilicus) Extremities: positive: Non-tender - Lab Results Fish Bones: 09/26/22 15:20 Assessment/Plan - Problem List (1) Vaginal delivery Impression: PPD#1 patient doing well routine care
[2022-09-28] MEDS: LACTATED RINGERS 1,000 ML IV SCH ×2 (12:38→12:39)
[2022-09-28] MEDS: DOCUSATE SODIUM 100 MG CAPSULE PO SCH (20:03)
[2022-09-29] MEDS: ACETAMINOPHEN 325 MG TABLET PO PRN ×3 (00:05→11:56)
[2022-09-29] MEDS: IBUPROFEN 600 MG TABLET PO PRN (02:19)
--- NOTE | 2022-09-29 09:20 | PROVIDER PROGRESS NOTE ---
Subjective - Prog Note Date Prog Note Date: 09/29/22 Prog Note Time: 09:18 - Subjective Subjective: Patient is PPD#2 s/p She is doing well this morning. Ambulating, tolerating regular diet. Spontaneously voiding. Lochia < menses Objective - Vital Signs/Intake & Output Reviewed Vital Signs: Yes Vital Signs: Vital Signs x48h Temp Pulse Resp BP Pulse Ox 09/29/22 06:00 97.9 F 75 18 125/80 99 Intake & Output: Intake & Output 09/26/22 09/27/22 09/28/22 09/29/22 23:59 23:59 23:59 23:59 Intake Total 5608.718 8913.633 Output Total 600 Balance 5538.335 6702.633 - Objective General Appearance: positive: No acute distress Respiratory: positive: Breath sounds nml Cardiovascular: positive: Regular rate & rhythm Abdomen: positive: Non-tender Skin: positive: Color nml Extremities: positive: Pedal edema (2+) - Lab Results Fish Bones: 09/26/22 15:20 Assessment/Plan - Problem List (1) Vaginal delivery Impression: PPD#2 discharge to home today.
--- NOTE | 2022-09-29 09:23 | Discharge Plan ---
Discharge Plan Problem Reviewed?: Yes Disposition: Home, Self Care Condition: Good Diet: Regular Activity Restrictions: Pelvic rest for 6 weeks No Smoking: If you smoke, Please STOP! Call for help. Follow-up with: Gema Banks DO [Provider Admit Priv/Credential] -
--- NOTE | 2022-09-29 09:28 | DISCHARGE SUMMARY ---
"Discharge Summary Admit Date: 09/26/22 Discharge Date: 09/29/22 Discharging Provider: Stefany Code Status: Attempt Resuscitation Condition at Discharge: Good Discharge Disposition: 01 Home, Self Care - DIAGNOSES Admission Diagnoses: Labor Discharge Diagnoses with Status of Each Condition: vaginal delivery - HPI History of Present Illness: Patient is a who presented with spontaneous rupture of membranes since 5:30 pm the previous day. - CONSULTS | PROCEDURES Procedures: normal spontaneous vaginal delivery - HOSPITAL COURSE Hospital Course: Patient was started on pitocin. She had an uncomplicated normal spontaneous vaginal delivery. Patient had an uncomplicated course and was discharged to home on day 2 - ALLERGIES Allergies/Adverse Reactions: Allergies Allergy/AdvReac Type Severity Reaction Status Date / Time grass pollen Allergy Mild Rash Verified 09/26/22 15:57 - PHYSICAL EXAM AT DISCHARGE General Appearance: positive: No acute distress Respiratory: positive: No respiratory distress, Breath sounds nml Abdomen: positive: Non-tender Extremities: positive: Pedal edema (2+) - LABS Result Diagrams: 09/26/22 15:20"
[2022-09-29 14:56] VITALS: BP 124/72
--- NOTE | 2022-09-29 15:57 | Labor Flowsheet ---
Labor Flowsheet Datetime Report Generated by CPN: 09/29/2022 15:56 Datetime: 09/29/2022 06:02 VITAL SIGNS NBP Sys/Ana/Mean (mmHg): 125 : 80 : 89 Pulse: 75 LaborFlag: Labor Datetime: 09/27/2022 20:10 SpO2 (%): 99 Datetime: 09/27/2022 02:43 UTERINE ACTIVITY Monitor Mode: Palpation Frequency (min): 2 Quality: Strong Duration (sec): 40-60 Pattern: Normal: <= 5 Contractions in 10 Minutes Resting Tone (Palpate): Relaxed FHR Baseline Changes: Tachycardia Variability: Moderate 6-25 bpm Comments: indeterminate baselin ewith pushing MD at BS abd aware unable to catogorize tracing Datetime: 09/27/2022 02:42 Pushing Progress: with Pushing; Pushing Effectively with Contractions Datetime: 09/27/2022 02:30 ASSESSMENT A Monitor Mode: External US FHR Baseline Rate : 160 Decelerations: Prolonged Category: Category II Datetime: 09/27/2022 02:25 STAGE 2 Pushing: Coached on Pushing; Urge to Push Pushing Position: Pushing with Contractions Datetime: 09/27/2022 02:22 COMMUNICATION Communication: Provider at Bedside Datetime: 09/27/2022 02:18 Patient Position/Activity: High Fowlers Datetime: 09/27/2022 02:14 Accelerations: 15X15 Datetime: 09/27/2022 02:08 Provider Notified (Name): Dr. Baltes Communication Comments: Pt complete and provider will be on her way in shortly Datetime: 09/27/2022 01:41 Temperature (C): 36.6 Datetime: 09/27/2022 01:32 Monitor Interventions for UA: [place] Adjusted Datetime: 09/27/2022 01:30 PAIN Pain Scale: 0 Datetime: 09/27/2022 01:19 Pain Assessment Comments: pt reporting incvreased vaginal and rectasl pressure Datetime: 09/27/2022 01:18 VAGINAL EXAM Dilatation (cm): 9.5 Effacement (%): 100 Station: 1 Exam by: AStewartRN Cervix, Consistency: Soft Cervix, Position: Anterior Notification Reason: Labor Status Datetime: 09/27/2022 00:47 Monitor Interventions for FHR: Ultrasound Adjusted Datetime: 09/27/2022 00:45 Actions for Decelerations: Side to Side Datetime: 09/27/2022 00:30 Pain Presence: None/Denies Pain Relief Measures: Epidural Given Datetime: 09/27/2022 00:21 I/O Interventions: Zepeda Cath Inserted Datetime: 09/26/2022 23:01 PATIENT CARE IV/Blood Work: IV Bolus Started Datetime: 09/26/2022 22:48 Anesthesia Level Check: T9 Datetime: 09/26/2022 22:43 Pain Goal: 2 Datetime: 09/26/2022 22:39 Epidural Procedure: Loading Dose Epidural Procedure Other: Pump Started Datetime: 09/26/2022 22:13 PROCEDURE TIME OUT Procedure Verify: Accurate Procedure Consent Form; Agreement on Procedure to be Done; Correct Patie nt Position Epidural Positioning: Sitting Datetime: 09/26/2022 22:08 ANESTHESIA Anesthesia Plans: Epidural Datetime: 09/26/2022 21:55 Medication Comments: pre epidural fluid bolus started Datetime: 09/26/2022 21:54 Consults: Anesthesia Datetime: 09/26/2022 21:47 Anesthesia Comments: epidural requested by patient Datetime: 09/26/2022 21:14 Contraction Comments: coupling noted Datetime: 09/26/2022 21:09 MEDICATIONS Pitocin (milliunits): Increased to @ 16 Datetime: 09/26/2022 21:08 Vaginal Bleeding: Scant Datetime: 09/26/2022 20:19 Patient Care Comments: labor positioning Datetime: 09/26/2022 19:36 Provider Reviewed Strip: Yes Datetime: 09/26/2022 19:15 Respirations: 18 Pain Type: Cramping Pain Location: Abdomen Pain Coping: Talking Through Contractions Membrane Status: Ruptured Membranes Rupture Method: Spontaneous Amniotic Fluid Color: Clear Amniotic Fluid Amount: Small Amniotic Fluid Odor: Normal MATERNAL ASSESSMENT Level of Consciousness: Alert DTR's/Clonus: DTRs 3+ Headache: Denies Breath Sounds, Left: Clear and Equal Breath Sounds, Right: Clear and Equal Nausea/Vomiting: Denies RUQ Epigastric Pain: Denies Maternal Comments: pt slightly tearful at this time, states that it is unexpected tear and slight o verwhelm from labor. reassurance provided. Comfort Measures: Breathing/Relaxation Hygiene: [place] Changed TEACHING Plan of Care: Plan of Care Discussed Datetime: 09/26/2022 17:30 Pitocin Checklist: At Least 1 Acceleration of 15 bpm x 15 Seconds in 30 Minutes or Adequate Variabi lity; No More than 1 Late Deceleration Occurred in Past 30 Minutes; No More than 2 Variable Decelerat ions > 60 Seconds in Duration and decreasing >60 bpm in 30 minutes; No More than 5 Uterine Contractio ns in 10 Minutes for any 20 Minute Interval; Uterus Palpates Soft between Contractions Datetime: 09/26/2022 17:27 Stage of : Labor Datetime: 09/26/2022 16:15 Oxygen Method: Room Air Datetime: 09/26/2022 16:02 PRE-INDUCTION CHECKLIST Orders on Chart: Yes H Record Available: Yes Indication Charted: Yes Adequate Pelvis Charted: No EFW Documented: Yes Gestational Age Documented: Yes Consent Signed and on Chart: Yes Provider with C/S Priv Aware: Yes Status of Cervix Documented: No 30min of Monitoring Prior: Yes 2 Accels of 15X15 Present: Yes No Late Decels Present: Yes Less than 2 Variable Decels: Yes Pt Meets Criteria for Induction: Yes
--- NOTE | 2022-09-30 18:55 | PROCEDURE REPORT ---
- HPI Diagnosis/Indication for NST: Other (labor) Current EDU 10/01/22 Gestation 39 Weeks and 2 Days 1 Para 0 Vital Signs Temperature 97.9 F 09/26/22 12:35 Temperature 98.2 F 09/29/22 10:00 Heart Rate 85 09/29/22 10:00 Respiratory Rate 16 09/29/22 10:00 Blood Pressure 124/72 09/29/22 10:00 O2 Saturation 99 09/29/22 10:00 If not protocol: Oxygen Flow, liters/minute 0 09/26/22 22:40 - NST Procedure NST Procedure Start Date 09/26/22 Start Time 12:35 Stop Time 13:17 Vibroacoustic Stimulation Used No term reactive NST - Results and Plan Plan: admit for spontaneous rupture of membranes
== END 2022-09-29 15:50 | disposition home or self-care (01) | DRG 805 ==
LOC: WFO 12:17 → FBP 12:20 → WFO 13:47 → FBP 13:48
PROVIDERS: ADMIT Obstetrics & Gynecology Obstetrics; ATTEND Obstetrics & Gynecology Obstetrics
PROC: 10E0XZZ Delivery of Products of Conception, External Approach (ICD-10-PCS; principal; 2022-09-27)
PROC: 0KQM0ZZ Repair Perineum Muscle, Open Approach (ICD-10-PCS; 2022-09-27)
DX: O70.1 Second degree perineal laceration during delivery (principal); O99.42 Diseases of the circulatory system complicating childbirth; Z37.0 Single live birth; Z3A.39 39 weeks gestation of pregnancy; R03.1 Nonspecific low blood-pressure reading; O99.214 Obesity complicating childbirth
CPT/HCPCS: 59025; 84112; 85025; 86850; 86900; 86901; 99215; A9270; J7120

== ENCOUNTER 2022-09-30 14:35 | Inpatient (IN) | payer OTHER ==
--- NOTE | 2022-09-30 15:08 | ED Physician Documentation ---
History of Present Illness - Stated complaint Stated Complaint: High BP - Chief complaint Chief Complaint: General - Additonal information Additional information: 36-year-old female who is 4 days presents the emergency department for headache, feeling dizzy as well as elevated blood pressures. . 09/26/2020. She was induced with Pitocin. She was on aspirin for preeclampsia prophylaxis given age. They did have some concerns for hypertension but at rest was normal. At the follow-up appointment for her she felt suddenly dizzy and unwell. Denies chest pain or shortness of air but did endorse a mild headache. On presentation to the emergency department here she is alert crying and tearful. She denies any fevers. States she still has a little lochia not much. No foul smell. Review of Systems Constitutional: denies: Fever, Chills Throat: reports: Reviewed and negative Cardiac: reports: Reviewed and negative Respiratory: reports: Reviewed and negative GI: reports: Reviewed and negative : reports: Reviewed and negative Skin: denies: Rash, Lesions Musculoskeletal: reports: Reviewed and negative Neurologic: reports: Headache PD PAST MEDICAL HISTORY - Past Medical History Cardiovascular: None Respiratory: None Neuro: None Endocrine/Autoimmune: None GI: None : None Musculoskeletal: None Derm: None - Allergies Allergies/Adverse Reactions: Allergies Allergy/AdvReac Type Severity Reaction Status Date / Time grass pollen Allergy Mild Rash Verified 09/30/22 14:45 - Social History Smoking Status: Never smoker PD ED PE NORMAL - General General: Alert and oriented X 3. No: No acute distress (Crying tearful and anxious) - HEENT HEENT: Moist mucous membranes - Neck Neck: Supple, no meningeal sign, No JVD - Cardiac Cardiac: RRR, No murmur - Respiratory Respiratory: No respiratory distress, Clear bilaterally - Abdomen Abdomen: Normal bowel sounds, Soft - Back Back: No CVA TTP - Derm Derm: Normal color, Warm and dry, No rash - Extremities Extremities: No deformity - Neuro Neuro: Alert and oriented X 3, recruiting operations consultant 2-12 intact Eye Opening: Spontaneous Motor: Obeys Commands Verbal: Oriented GCS Score: 15 Results - Vitals Vitals: Vital Signs - 24 hr 09/30/22 09/30/22 09/30/22 14:40 15:14 15:37 Temperature 36.2 C L Heart Rate 94 78 84 Respiratory 16 17 15 Rate Blood Pressure 159/88 H 153/105 H 151/94 H O2 Saturation 100 99 98 Oxygen O2 Source Room air - EKG (time done) 1447 EKG releavant findings:: EKG personally interpreted by author of this note. Relevant findings are: Rate: Rate (enter#) (79) Rhythm: NSR [place]: Normal Intervals: Normal DE QRS: Normal Ischemia: Normal ST segments Compare to prior EKG: Old EKG unavailable Computer interpretation: Agree with computer - Labs Labs: Laboratory Tests 09/30/22 09/30/22 09/30/22 14:55 14:55 14:55 WBC 13.7 H RBC 3.67 L Hgb 11.2 L Hct 34.2 L MCV 93.2 MCH 30.5 MCHC 32.7 RDW 13.2 Plt Count 318 MPV 9.9 Neut # (Auto) 10.6 H Lymph # (Auto) 1.9 [place] # (Auto) 0.8 Eos # (Auto) 0.2 Baso # (Auto) 0.0 Absolute Nucleated RBC 0.00 Nucleated RBC % 0.0 Sodium 140 Potassium 3.7 Chloride 105 Carbon Dioxide 25 Anion Gap 10.0 BUN 15 Creatinine 0.5 Estimated GFR (MDRD) 140 Glucose 105 H Uric Acid 5.4 Calcium 9.3 Phosphorus 4.2 Magnesium 1.7 Total Bilirubin 0.3 AST 35 ALT 32 Alkaline Phosphatase 86 Lactate Dehydrogenase 173 Total Protein 6.5 L Albumin 2.8 L Globulin 3.7 Albumin/Globulin Ratio 0.8 L Lipase 35 Urine Creatinine Ur Total Protein Timed Protein/Creatinin Ratio 09/30/22 14:55 WBC RBC Hgb Hct MCV MCH MCHC RDW Plt Count MPV Neut # (Auto) Lymph # (Auto) [place] # (Auto) Eos # (Auto) Baso # (Auto) Absolute Nucleated RBC Nucleated RBC % Sodium Potassium Chloride Carbon Dioxide Anion Gap BUN Creatinine Estimated GFR (MDRD) Glucose Uric Acid Calcium Phosphorus Magnesium Total Bilirubin AST ALT Alkaline Phosphatase Lactate Dehydrogenase Total Protein Albumin Globulin Albumin/Globulin Ratio Lipase Urine Creatinine < 13.0 Ur Total Protein Timed 12 Protein/Creatinin Ratio 0.0 - Rads (name of study) cxr Relevant Findings:: Final report received (No acute cardiopulmonary process) PD Medical Decision Making - ED course Complexity details: reviewed results, re-evaluated patient, considered differential, d/w patient, d/w small business consultant (Joe) ED course: 36-year-old female who is 4 days presents emergency department for evaluation of hypertension, dizziness and headache. During her she was on aspirin prophylactically for concerns of preeclampsia. She did have some mildly elevated blood pressures during the period but none at rest. Today when her was being seen for the first time at the burling and joining supervisor's office she began to have headache and dizziness. Denied shortness of air or chest pain. She reports some mild swelling to her extremities. On exam I am greeted by an alert anxious and crying woman. She does have a severely elevated blood pressure 159/109. No focal deficits. She is not hy perreflexic. We do have pending labs. I briefly discussed this case with OB Dr. Diaz. She recommended oral long-acting nifedipine but would hold off on a magnesium infusion at this time pending labs. 1545: Dr. Mccall is at bedside with OB. She plans to admit the patient for blood pressure monitoring A=nnd further management of hypertension in the period Departure - Departure Disposition: ED Place in Observation Clinical Impression: Hypertension, condition or complication
[2022-09-30 15:11] LABS: BASOPHILS % (AUTO) 0.3 %; EOSINOPHILS # (AUTO) 0.2 10^3/uL (0.0-0.7); EOSINOPHILS % (AUTO) 1.5 %; HCT - HEMATOCRIT 34.2 % (37.0-47.0); HGB - HEMOGLOBIN 11.2 g/dL (12.0-16.0); LYMPHOCYTES # (AUTO) 1.9 10^3/uL (1.5-3.5); LYMPHOCYTES % (AUTO) 14.1 %; MEAN CORPUSCULAR HEMOGLOBIN 30.5 pg (27.0-31.0); MEAN CORPUSCULAR HGB CONC 32.7 g/dL (32.0-36.0); MEAN CORPUSCULAR VOLUME 93.2 fL (81.0-99.0); MEAN PLATELET VOLUME 9.9 fL (7.9-10.8); MONOCYTES # (AUTO) 0.8 10^3/uL (0.0-1.0); NEUTROPHILS # (AUTO) 10.6 10^3/uL (1.5-6.6); NEUTROPHILS % (AUTO) 77.4 %; PLT - PLATELET COUNT 318 10^3/uL (130-450); RED BLOOD COUNT 3.67 10^6/uL (4.20-5.40); RED CELL DISTRIBUTION WIDTH 13.2 % (12.0-15.0); WHITE BLOOD COUNT 13.7 x10^3/uL (4.8-10.8)
--- NOTE | 2022-09-30 15:14 | XRAY Report ---
PROCEDURE: Chest 1 View X-Ray INDICATIONS: 4 days post TECHNIQUE: One view of the chest was acquired. COMPARISON: None. FINDINGS: Surgical changes and devices: None. Lungs and pleura: No pleural effusions or pneumothorax. Lungs are clear. Mediastinum: Mediastinal contours appear normal. Heart size is normal. Bones and chest wall: No suspicious bony lesions. Overlying soft tissues appear unremarkable. IMPRESSION: No acute cardiopulmonary process. Reviewed by: Cornelio Prater on 09/30/2022 3:13 PM PDT Approved by: Cornelio Prater on 09/30/2022 3:13 PM PDT Station ID: [id number]
[2022-09-30 15:26] LABS: ALBUMIN 2.8 g/dL (3.2-5.5); ALBUMIN/GLOBULIN RATIO 0.8 (1.0-2.2); BILIRUBIN,TOTAL 0.3 mg/dL (0.2-1.0); CALCIUM 9.3 mg/dL (8.5-10.3); CREATININE 0.5 mg/dL (0.4-1.0); MAGNESIUM 1.7 mg/dL (1.7-2.8); PHOSPHORUS 4.2 mg/dL (2.5-4.6); POTASSIUM 3.7 mmol/L (3.5-5.0); TOTAL PROTEIN 6.5 g/dL (6.7-8.2); URIC ACID 5.4 mg/dL (2.6-7.2)
[2022-09-30] MEDS ORDERED: NIFEdipine ER 30 MG TABLET PO STA (15:27)
[2022-09-30 15:34] LABS: CREATININE,URINE < 13.0 mg/dL; TOTAL PROTEIN,URINE TIMED 12 mg/dL
[2022-09-30] MEDS ORDERED: SODIUM CHLORIDE FLUSH 0.9% 10 ML SYRINGE IVP PRN (15:56)
--- NOTE | 2022-09-30 16:58 | HISTORY & PHYSICAL EXAMINATION ---
Admit History - Visit Reason Visit Reason: Other ( pre-eclampsia) - : 1 Parity: 1 Care: positive: [facility] Smoking Status: Never smoker - Other Maternal History Other Maternal History: Patient is PPD#3 s/p . She presented to the director executive communications's office and had her BP taken because she didn't feel well. BP was elevated. BPs in ER 151-159/88-105. Denies changes in vision, right upper quadrant pain. Meds/Allgy - Allergies Allergies/Adverse Reactions: Allergies Allergy/AdvReac Type Severity Reaction Status Date / Time grass pollen Allergy Mild Rash Verified 09/30/22 14:45 Review of Systems - Constitutional Constitutional: denies: Fever, Chills - Eyes Eyes: denies: Pain - Cardiovascular Cariovascular: denies: Chest pain - Respiratory Respiratory: denies: SOB at rest - Gastrointestinal Gastrointestinal: denies: Abdominal pain - All Other Systems All Other Systems: reports: Reviewed and negative Physical - Abdominal Exam Vital Signs: Temp Pulse Resp BP Pulse Ox O2 Flow Rate 97.2 F L 84 15 151/93 H 99 09/30/22 14:40 09/30/22 16:04 09/30/22 16:04 09/30/22 16:04 09/30/22 16:04 - Other Notes Labor Progress Note/Additional Text: Gen: NAD, tearful Pulm: CTA bilaterally Cardiac: RRR Abdomen: soft, non-distended, firm fundus below umbilicus Ext: 2+ peripheral edema DTRs: 3+ no clonus Plan for Labor - Plan For Labor Plan for Labor: 1. pre-eclampsia -labwork is normal, no proteinuria -procardia 30 mg PO XL daily -monitor for signs and symptoms of worsening pre-eclampsia. Plan of care discussed with patient and significant other, all questions answered.
[2022-09-30] MEDS ORDERED: SODIUM CHLORIDE FLUSH 0.9% 10 ML SYRINGE IVP SCH (17:00)
[2022-09-30] MEDS: ACETAMINOPHEN 325 MG TABLET PO PRN ×2 (17:02→21:01)
[2022-09-30] MEDS: IBUPROFEN 600 MG TABLET PO PRN (22:09)
[2022-10-01] MEDS: ACETAMINOPHEN 325 MG TABLET PO PRN ×3 (01:06→09:58)
[2022-10-01] MEDS: IBUPROFEN 600 MG TABLET PO PRN ×2 (06:14→12:45)
[2022-10-01] MEDS: NIFEdipine ER 30 MG TABLET PO SCH ×3 (06:21→17:09)
[2022-10-01] MEDS ORDERED: NIFEdipine ER 30 MG TABLET PO SCH (09:00)
--- NOTE | 2022-10-01 09:20 | PROVIDER PROGRESS NOTE ---
Subjective - Prog Note Date Prog Note Date: 10/01/22 - Subjective Pt reports feeling: Improved Subjective: Subjective Patient doing well today, less significant headache. Now mild. Did recently received a dose of Tylenol. No dizziness, changes in vision. No abdominal pain. Objective General: Alert, oriented, no apparent distress. Cardiovascular: Regular rate. Regular rhythm. Lungs: No increased work of breathing. Clear to auscultation bilaterally Abdomen: Uterus firm. Below umbilicus. No guarding or rebound. Extremities: No pain on palpation. No cords palpated. Distal pulses intact. 2+ patellar reflexes Assessment and Plan 36-year-old G1, P1 with elevated blood pressures 1. Elevated blood pressures -Concern for preeclampsia, however patient never technically due to severe range blood pressures. Labs have been normal. Since last night after receiving dose of nifedipine, she has been in the normal range, sometimes on the lower end of normal. -Will observe today and possibly discharge this afternoon. Objective - Vital Signs/Intake & Output Vital Signs: Vital Signs x48h Temp Pulse Resp BP Pulse Ox 10/01/22 05:00 98.4 F 81 18 114/72 95 Intake & Output: Intake & Output 09/28/22 09/29/22 09/30/22 10/01/22 23:59 23:59 23:59 23:59 Intake Total 1157 650 Balance 1157 650 - Lab Results Fish Bones: 10/01/22 14:54 10/01/22 14:54 Other Labs: Lab Results x24hrs 09/30/22 09/30/22 09/30/22 Range/Units 14:55 14:55 14:55 WBC (4.8-10.8) x10^3/uL RBC (4.20-5.40) 10^6/uL Hgb (12.0-16.0) g/dL Hct (37.0-47.0) % MCV (81.0-99.0) fL MCH (27.0-31.0) pg MCHC (32.0-36.0) g/dL RDW (12.0-15.0) % Plt Count (130-450) 10^3/uL MPV (7.9-10.8) fL Neut # (Auto) (1.5-6.6) 10^3/uL Lymph # (Auto) (1.5-3.5) 10^3/uL [place] # (Auto) (0.0-1.0) 10^3/uL Eos # (Auto) (0.0-0.7) 10^3/uL Baso # (Auto) (0.0-0.1) 10^3/uL Absolute Nucleated RBC x10^3/uL Nucleated RBC % /100WBC Sodium 140 (135-145) mmol/L Potassium 3.7 (3.5-5.0) mmol/L Chloride 105 (101-111) mmol/L Carbon Dioxide 25 (21-32) mmol/L Anion Gap 10.0 (6-13) BUN 15 (6-20) mg/dL Creatinine 0.5 (0.4-1.0) mg/dL Estimated GFR (MDRD) 140 (>89) Glucose 105 H (70-100) mg/dL Uric Acid 5.4 (2.6-7.2) mg/dL Calcium 9.3 (8.5-10.3) mg/dL Phosphorus 4.2 (2.5-4.6) mg/dL Magnesium 1.7 (1.7-2.8) mg/dL Total Bilirubin 0.3 (0.2-1.0) mg/dL AST 35 (10-42) IU/L ALT 32 (10-60) IU/L Alkaline Phosphatase 86 (42-121) IU/L Lactate Dehydrogenase 173 (91-225) IU/L Total Protein 6.5 L (6.7-8.2) g/dL Albumin 2.8 L (3.2-5.5) g/dL Globulin 3.7 (2.1-4.2) g/dL Albumin/Globulin Ratio 0.8 L (1.0-2.2) Lipase 35 (22-51) U/L Urine Creatinine < 13.0 mg/dL Ur Total Protein Timed 12 mg/dL Protein/Creatinin Ratio 0.0 (<=0.2) 09/30/22 Range/Units 14:55 WBC 13.7 H (4.8-10.8) x10^3/uL RBC 3.67 L (4.20-5.40) 10^6/uL Hgb 11.2 L (12.0-16.0) g/dL Hct 34.2 L (37.0-47.0) % MCV 93.2 (81.0-99.0) fL MCH 30.5 (27.0-31.0) pg MCHC 32.7 (32.0-36.0) g/dL RDW 13.2 (12.0-15.0) % Plt Count 318 (130-450) 10^3/uL MPV 9.9 (7.9-10.8) fL Neut # (Auto) 10.6 H (1.5-6.6) 10^3/uL Lymph # (Auto) 1.9 (1.5-3.5) 10^3/uL [place] # (Auto) 0.8 (0.0-1.0) 10^3/uL Eos # (Auto) 0.2 (0.0-0.7) 10^3/uL Baso # (Auto) 0.0 (0.0-0.1) 10^3/uL Absolute Nucleated RBC 0.00 x10^3/uL Nucleated RBC % 0.0 /100WBC Sodium (135-145) mmol/L Potassium (3.5-5.0) mmol/L Chloride (101-111) mmol/L Carbon Dioxide (21-32) mmol/L Anion Gap (6-13) BUN (6-20) mg/dL Creatinine (0.4-1.0) mg/dL Estimated GFR (MDRD) (>89) Glucose (70-100) mg/dL Uric Acid (2.6-7.2) mg/dL Calcium (8.5-10.3) mg/dL Phosphorus (2.5-4.6) mg/dL Magnesium (1.7-2.8) mg/dL Total Bilirubin (0.2-1.0) mg/dL AST (10-42) IU/L ALT (10-60) IU/L Alkaline Phosphatase (42-121) IU/L Lactate Dehydrogenase (91-225) IU/L Total Protein (6.7-8.2) g/dL Albumin (3.2-5.5) g/dL Globulin (2.1-4.2) g/dL Albumin/Globulin Ratio (1.0-2.2) Lipase (22-51) U/L Urine Creatinine mg/dL Ur Total Protein Timed mg/dL Protein/Creatinin Ratio (<=0.2)
[2022-10-01 15:03] LABS: BASOPHILS % (AUTO) 0.3 %; EOSINOPHILS # (AUTO) 0.2 10^3/uL (0.0-0.7); EOSINOPHILS % (AUTO) 1.8 %; HCT - HEMATOCRIT 34.2 % (37.0-47.0); HGB - HEMOGLOBIN 11.2 g/dL (12.0-16.0); LYMPHOCYTES # (AUTO) 1.6 10^3/uL (1.5-3.5); LYMPHOCYTES % (AUTO) 14.9 %; MEAN CORPUSCULAR HEMOGLOBIN 30.4 pg (27.0-31.0); MEAN CORPUSCULAR HGB CONC 32.7 g/dL (32.0-36.0); MEAN CORPUSCULAR VOLUME 92.9 fL (81.0-99.0); MONOCYTES # (AUTO) 0.8 10^3/uL (0.0-1.0); NEUTROPHILS # (AUTO) 8.2 10^3/uL (1.5-6.6); NEUTROPHILS % (AUTO) 75.2 %; PLT - PLATELET COUNT 327 10^3/uL (130-450); RED BLOOD COUNT 3.68 10^6/uL (4.20-5.40); WHITE BLOOD COUNT 10.9 x10^3/uL (4.8-10.8)
[2022-10-01 15:16] LABS: ALBUMIN 2.9 g/dL (3.2-5.5); ALBUMIN/GLOBULIN RATIO 0.9 (1.0-2.2); BILIRUBIN,TOTAL 0.3 mg/dL (0.2-1.0); CALCIUM 8.7 mg/dL (8.5-10.3); CREATININE 0.6 mg/dL (0.4-1.0); POTASSIUM 3.9 mmol/L (3.5-5.0); TOTAL PROTEIN 6.2 g/dL (6.7-8.2)
[2022-10-01 16:40] VITALS: BP 144/92
--- NOTE | 2022-10-01 16:57 | DISCHARGE SUMMARY ---
Discharge Summary Admit Date: 09/30/22 Discharge Date: 10/01/22 Discharging Provider: Hugh Guillen MD Code Status: Attempt Resuscitation Condition at Discharge: Good Discharge Disposition: 01 Home, Self Care - HPI History of Present Illness: Subjective: Headache improved. No changes in vision or right upper quadrant pain. Feels well today. Eager to get home. Objective General: Alert, oriented, no apparent distress. Cardiovascular: Regular rate. Regular rhythm. Lungs: No increased work of breathing. Clear to auscultation bilaterally Extremities: No pain on palpation. No cords palpated. Distal pulses intact. Temp Pulse Resp BP Pulse Ox O2 Flow Rate 98.2 F 81 16 144/92 H 100 10/01/22 15:38 10/01/22 12:48 10/01/22 15:38 10/01/22 16:40 10/01/22 15:38 - HOSPITAL COURSE Hospital Course: Patient was a 36-year-old G1, P1 admitted for elevated blood pressures. She received 1 dose of nifedipine last night, but since blood pressures have been normal. Never met criteria for severe range blood pressures, although she closely approach this. Subsequent blood pressures were in the 100s to 140s over 60s to 70s. As these were creeping up the end of her dosing, additional nifedipine was given. Labs remained normal throughout her hospital stay. Headache resolved with Tylenol. She was counseled on the diagnosis of preeclampsia with severe features, and will report back return if she notices any change or develops any of the symptoms. We will continue nifedipine outpatient until blood pressure has normalized in clinic. She will come to clinic in 2 days. Patient will merchandise pickup/receiving associate blood pressure cuff on her way home to continue taking blood pressures in the interim. - ALLERGIES Allergies/Adverse Reactions: Allergies Allergy/AdvReac Type Severity Reaction Status Date / Time grass pollen Allergy Mild Rash Verified 09/30/22 14:45 - MEDICATIONS Home Medications: Ambulatory Orders Medication Instructions Recorded Confirmed NIFEdipine [Procardia Xl] 30 mg PO DAILY #30 tablet 10/01/22 - LABS Result Diagrams: 10/01/22 14:54 10/01/22 14:54 - FOLLOW UP Follow Up: With Hugh Guillen MD in the [facility], in 2 days for blood pressure check in next week and appointment for . - TIME SPENT Time Spent in Discharge (Minutes): 40
--- NOTE | 2022-10-01 16:57 | Discharge Plan ---
Discharge Plan Problem Reviewed?: Yes Disposition: Home, Self Care Condition: Good Prescriptions: NIFEdipine [Procardia Xl] 30 mg PO DAILY #30 tablet Diet: Regular Activity Restrictions: No Restrictions Instruction Topics: Preeclampsia No Smoking: If you smoke, Please STOP! Call for help. Follow-up with: Hugh Guillen MD [Provider Admit Priv/Credential] -
== END 2022-10-01 17:40 | disposition home or self-care (01) | DRG 776 ==
LOC: ED 14:35 → FBP 16:33
PROVIDERS: ADMIT Obstetrics & Gynecology Obstetrics; ATTEND Obstetrics & Gynecology
DX: O14.95 Unspecified pre-eclampsia, complicating the puerperium (principal)
CPT/HCPCS: 36415; 71045; 80053; 82570; 83615; 83690; 83735; 84100; 84156; 84550; 85025; 93005; 99284; 99285; A9270